=== PATIENT | male | born 1980 | race Caucasian/White ===

== ENCOUNTER 2020-07-15 15:21 | Emergency (ER) | payer SELFPAY ==
[2020-07-15 15:30] VITALS: BP 138/94; PULSE 81; TEMP 98.6; BMI 29.2
[2020-07-15 17:18] LABS: BASO % 0.3 % (0-2.0); EOS % 0.6 % (0-4.5); HEMATOCRIT 41.8 % (35.4-49); HEMOGLOBIN 14.1 GM/dL (11.7-16.9); LYMPH % 15.9 % (8-40); MCH 30.7 pg (25.7-33.7); MCHC 33.8 g/dl (32.0-35.9); MEAN CELL VOLUME 90.8 fl (80-96); MEAN PLT VOLUME 9.4 fl (7.5-11.1); MONO % 6.7 % (3.8-10.2); NEUT % 76.5 % (42.8-82.8); RBC 4.61 M/mm3 (4.00-5.60); RDW 13.2 % (11.9-15.9)
[2020-07-15] MEDS ORDERED: LACTATED RINGERS SOLUTION 1000 ML INFUS.BAG IV ONE (17:26)
[2020-07-15 17:44] LABS: PH,URINE 5.5 (5.0-8.0); URINE APPEARANCE CLEAR; URINE BILIRUBIN NEGATIVE (NEGATIVE); URINE COLOR YELLOW; URINE GLUCOSE (UA) NEGATIVE (NEGATIVE); URINE KETONE TRACE (NEGATIVE); URINE LEUK ESTERASE NEGATIVE (NEGATIVE); URINE NITRITE NEGATIVE (NEGATIVE); URINE PROTEIN NEGATIVE (NEGATIVE)
[2020-07-15 17:46] LABS: POTASSIUM 3.7 mmol/L (3.5-5.1)
[2020-07-15 17:47] LABS: CALCIUM 9.1 mg/dL (8.5-10.1); PLATELET COUNT 201 K/MM3 (134-434); PLATELET ESTIMATE ADEQUATE
[2020-07-15 17:48] LABS: ALBUMIN 3.9 g/dl (3.4-5.0); BLOOD UREA NITROGEN 24.3 mg/dL (7-18)
[2020-07-15 17:51] LABS: CREATININE 1.2 mg/dL (0.55-1.3)
[2020-07-15 17:53] LABS: BILIRUBIN,TOTAL 0.8 mg/dL (0.2-1); TOT PROT 7.2 g/dl (6.4-8.2)
== END 2020-07-15 19:13 | disposition home or self-care (01) ==
LOC: JER 15:21
DX: K40.20 Bilateral inguinal hernia, without obstruction or gangrene, not specified as recurrent (principal)
CPT/HCPCS: 36415; 80053; 81003; 83605; 85025; 87086; 93005; 93010; 99284-25

== ENCOUNTER 2020-07-18 02:42 | Inpatient (IN) | payer OTHER ==
[2020-07-18] MEDS ORDERED: SODIUM CHLORIDE 1,000 ML IV STA (04:14)
[2020-07-18] MEDS ORDERED: morphine CARPU-JECT 4 MG/1 ML DISP.SYRIN IVPUSH ONE (04:28)
[2020-07-18] MEDS ORDERED: morphine SULFATE 4 MG/ML VIAL ONE (04:50)
[2020-07-18 04:59] LABS: BASO % 0.2 % (0-2.0); EOS % 0.4 % (0-4.5); HEMATOCRIT 46.2 % (35.4-49); HEMOGLOBIN 16.1 GM/dL (11.7-16.9); MCH 31.3 pg (25.7-33.7); MCHC 34.8 g/dl (32.0-35.9); MEAN CELL VOLUME 90.1 fl (80-96); MEAN PLT VOLUME 9.1 fl (7.5-11.1); MONO % 4.7 % (3.8-10.2); NEUT % 84.7 % (42.8-82.8); PLATELET COUNT 216 K/MM3 (134-434); RBC 5.13 M/mm3 (4.00-5.60); RDW 13.3 % (11.9-15.9); WHITE BLOOD COUNT 12.3 K/mm3 (4.0-10.0)
[2020-07-18 05:15] LABS: INR 1.02 (0.83-1.09); PROTHROMBIN TIME (PATIENT) 12.5 SEC (9.7-13.0)
[2020-07-18 05:17] LABS: POTASSIUM 4.1 mmol/L (3.5-5.1)
[2020-07-18 05:18] LABS: ACTIVATED PTT 32.4 SECONDS (25.2-36.5)
[2020-07-18 05:19] LABS: ALBUMIN 4.5 g/dl (3.4-5.0); BLOOD UREA NITROGEN 18.4 mg/dL (7-18); CALCIUM 9.5 mg/dL (8.5-10.1)
[2020-07-18 05:22] LABS: CREATININE 1.2 mg/dL (0.55-1.3)
[2020-07-18 05:24] LABS: BILIRUBIN,TOTAL 0.6 mg/dL (0.2-1)
[2020-07-18] MEDS ORDERED: LACTATED RINGERS SOLUTION 1000 ML INFUS.BAG IV ONE (05:41)
[2020-07-18] MEDS ORDERED: MORPHINE SULFATE 2 MG/ML VIAL IVPUSH PRN (09:26)
[2020-07-18] MEDS ORDERED: LACTATED RINGERS SOLUTION 1,000 ML IV SCH (09:30)
[2020-07-18] MEDS ORDERED: fentaNYL CITRATE 250 MCG/5 ML VIAL ONE (12:06)
[2020-07-18] MEDS ORDERED: MIDAZOLAM HCL 2 MG/2 ML SINGLE DOSE VIAL ONE (12:06)
[2020-07-18] MEDS ORDERED: LIDOCAINE HCL/PF 2% SDV 5ML VIAL ONE (12:06)
[2020-07-18] MEDS ORDERED: PROPOFOL 20 ML ONE (12:06)
[2020-07-18] MEDS ORDERED: ceFAZolin SODIUM 1 GM VIAL IVPB ONE (12:45)
[2020-07-18] MEDS ORDERED: ceFAZolin SODIUM 1 GM VIAL ONE (12:45)
[2020-07-18] MEDS ORDERED: LIDOCAINE HCL 1%, 10 MG/ML (20ML VIAL) NR ONE (12:47)
[2020-07-18] MEDS ORDERED: BUPIVACAINE HCL/PF 0.5% (5 MG/ML) 30 ML VIAL IJ ONE (12:47)
[2020-07-18] MEDS ORDERED: DEXAMETHASONE SOD PHOSPHATE 4 MG/1 ML VIAL ONE (13:05)
[2020-07-18] MEDS ORDERED: LIDOCAINE HCL 2% JELLY (5 ML/TUBE) ONE (13:33)
[2020-07-18] MEDS ORDERED: NEOSTIGMINE METHYLSULFATE 0.5 MG/ML - 10 ML MDV ONE (13:34)
[2020-07-18] MEDS ORDERED: GLYCOPYRROLATE 0.2 MG/1 ML VIAL ONE (13:34)
[2020-07-18] MEDS ORDERED: IBUPROFEN 800 MG/8 ML IJ IVPB PRN (14:26)
[2020-07-18] MEDS ORDERED: ONDANSETRON 4 MG/2 ML VIAL IVPUSH PRN (14:26)
[2020-07-18] MEDS ORDERED: ACETAMINOPHEN 1000 MG/100 ML VIAL (NON FORMULARY) IVPB ONE ×2 (14:35→15:03)
[2020-07-18] MEDS ORDERED: KETOROLAC TROMETHAMINE 30 MG/1 ML VIAL IVPUSH PRN (14:36)
[2020-07-18] MEDS ORDERED: SODIUM CHLORIDE 1,000 ML IV SCH (14:45)
[2020-07-18] MEDS ORDERED: morphine SULFATE 4 MG/ML VIAL IVPUSH PRN (15:04)
[2020-07-18] MEDS: LACTATED RINGERS SOLUTION 1,000 ML IV SCH (15:20)
[2020-07-18] MEDS: IBUPROFEN 800 MG/8 ML IJ IVPB SCH ×2 (16:39→21:38)
[2020-07-18 19:07] VITALS: BMI 27.2
[2020-07-19] MEDS: IBUPROFEN 800 MG/8 ML IJ IVPB SCH ×3 (04:25→14:36)
[2020-07-19] MEDS: LACTATED RINGERS SOLUTION 1,000 ML IV SCH (06:49)
[2020-07-19 08:15] LABS: BASO % 0.3 % (0-2.0); HEMATOCRIT 37.6 % (35.4-49); HEMOGLOBIN 12.7 GM/dL (11.7-16.9); LYMPH % 22.1 % (8-40); MCH 30.8 pg (25.7-33.7); MCHC 33.7 g/dl (32.0-35.9); MEAN CELL VOLUME 91.4 fl (80-96); MEAN PLT VOLUME 9.8 fl (7.5-11.1); MONO % 7.6 % (3.8-10.2); PLATELET COUNT 167 K/MM3 (134-434); RBC 4.11 M/mm3 (4.00-5.60); RDW 13.4 % (11.9-15.9); WHITE BLOOD COUNT 11.3 K/mm3 (4.0-10.0)
[2020-07-19 08:39] LABS: CALCIUM 8.7 mg/dL (8.5-10.1)
[2020-07-19 08:40] LABS: ALBUMIN 3.2 g/dl (3.4-5.0); BLOOD UREA NITROGEN 9.7 mg/dL (7-18)
[2020-07-19 08:43] LABS: CREATININE 1.1 mg/dL (0.55-1.3); PHOSPHOROUS 3.1 mg/dL (2.5-4.9)
[2020-07-19 08:44] LABS: BILIRUBIN,TOTAL 0.9 mg/dL (0.2-1)
[2020-07-19 08:57] LABS: TOT PROT 5.8 g/dl (6.4-8.2)
[2020-07-19] MEDS ORDERED: NICOTINE 14 MG/24 HOURS TOPICAL PATCH TD SCH (10:00)
[2020-07-19 14:05] VITALS: BP 111/65; PULSE 62; TEMP 98.5
== END 2020-07-19 18:30 | disposition home or self-care (01) | DRG 228 ==
LOC: JER 02:42 → JERBED 08:48 → J7W 17:09
PROVIDERS: ADMIT Internal Medicine; ATTEND Internal Medicine
PROC: 0YU50JZ Supplement Right Inguinal Region with Synthetic Substitute, Open Approach (ICD-10-PCS; principal; 2020-07-18 12:00)
DX: K40.30 Unilateral inguinal hernia, with obstruction, without gangrene, not specified as recurrent (principal); F17.200 Nicotine dependence, unspecified, uncomplicated
CPT/HCPCS: 36415; 74177-TC; 80053; 83605; 83735; 84100; 85025; 85610; 85730; 86850; 86900; 86901; 88302-TC; 88304-TC; 93005; 93010; 94760; 97116-GP; 97161-GP; 99285-25; C9803; J0131; U0003